=== PATIENT | female | born 1960 | race Caucasian/White ===

== ENCOUNTER 2023-09-29 14:34 | Emergency (ER) | payer MEDICARE, SELFPAY ==
[2023-09-29 14:38] VITALS: BP 136/77; PULSE 64; RESP 14; TEMP 36.7; O2SAT 97; BMI 27.2
--- NOTE | 2023-09-29 15:02 | CT_ITS ---
The [address] [address] Patient Name: TAMAR GERARD MRN: [id number] date: 1960 Sex: F Assigned Patient Location: ER Current Patient Location: Accession/Order Number: [id number] Exam Date: 09/29/2023 14:20 Report Date: 09/29/2023 18:06 At the request of: STACEY MARC Procedure: CT abdomen pelvis w con EXAM: CT abdomen pelvis w con TECHNIQUE: Axial CT images were obtained of the abdomen and pelvis with intravenous contrast. Sagittal and coronal reformatted images were also obtained. Dose reduction techniques were achieved by using automated exposure control and/or adjustment of mA and/or kV according to patient size and/or use of iterative reconstruction technique. HISTORY: diffuse abdominal pain, concern for SBO COMPARISON: 12/13/2020 FINDINGS: Lower chest: Stable scarring and/or atelectasis posteriorly in the left lower lobe. Liver: The liver is homogeneous with normal contours and normal size. Gallbladder: Status post colostomy. Mild central biliary dilatation is likely within normal limits, following cholecystectomy. Pancreas: The pancreas is homogeneous without evidence for mass lesion or inflammation. Spleen: Spleen is not visualized suggesting splenectomy. Adrenal glands: The adrenal glands are unremarkable Kidneys and bladder: The kidneys are unremarkable with no evidence for mass lesion, hydronephrosis or inflammation. The ureters demonstrate normal caliber. The urinary bladder is unremarkable. GI Tract: Stomach is unremarkable. Visualized small bowel is unremarkable without evidence for obstruction or active inflammation. Moderate retained stool throughout much of the colon. Reproductive: The uterus has been removed. Lymph nodes: No retroperitoneal or abdominal lymphadenopathy. Vascular: The aorta is not dilated. Peritoneum: No free intraperitoneal air or fluid. No acute inflammation. Abdominal wall: Implanted device in the subcutaneous fat of the left anterior abdominal wall. Spinal stimulator is noted. Degenerative changes of the lumbar spine. CT/CT abdomen pelvis w con IMPRESSION: Moderate retained stool throughout much of the colon suggesting constipation. No evidence for bowel obstruction or other acute process. Electronically authenticated by: JAMAAL ARMSTRONG Date: 09/29/2023 18:06
[2023-09-29] MEDS: 0.9 % SODIUM CHLORIDE 1,000 ML 200 ML IV (15:14)
[2023-09-29 15:17] LABS: Hematocrit 44.2 % (36.0-48.0); Hemoglobin 14.2 g/dL (12.0-16.0); Mean Corpuscular HGB Conc 32.1 g/dL (29.9-35.2); Mean Corpuscular Hemoglobin 35.1 pg (26.7-34.0); Mean Corpuscular Volume 109.4 fL (81.0-99.0); Mean Platelet Volume 9.4 fL (9.5-13.5); Platelet Count 360 10^3/uL (150-450); Red Blood Count 4.04 10^6/uL (4.20-5.40); Red Cell Distribution Width 15.1 % (11.0-15.0); White Blood Count 13.8 10^3/uL (4.0-11.0)
[2023-09-29 15:32] LABS: Anion Gap 8.4; BUN Creatinine Ratio 19.5; Carbon Dioxide 31.1 mmol/L (21.0-32.0); Chloride 106 mmol/L (98-107); Estimated GFR (African America >60 (>=60); Estimated GFR (Non-African Ame >60 (>=60); Glucose 91 mg/dL (74-106); Potassium 3.5 mmol/L (3.5-5.1); Sodium 142 mmol/L (136-145)
[2023-09-29 16:08] LABS: Hypochromasia 2+; Macrocytosis 2+; Poikilocytosis 1+; Stomatocytes 1+
[2023-09-29 16:13] LABS: Eosinophils Absolute Manual 0.13 10^3/uL (0.00-0.70); Monocytes Absolute Manual 1.38 10^3/uL (0.30-0.80); Segmented Neut Absolute Manual 8.28 10^3/uL (1.4-6.5)
--- NOTE | 2023-09-29 16:20 | ED.ABDPAIN1 ---
HPI - Abdominal Pain General Chief Complaint: Abdominal Pain Stated Complaint: BOWEL OBSTRUCTION Time Seen by Provider: 09/29/23 14:56 Source: patient Mode of arrival: Wheelchair History of Present Illness HPI narrative: 63-year-old female presents to the emergency department for abdominal pain. She is complaining of diffuse abdominal pain which is been increasing for three days and she is worried about a small bowel obstruction. She's had them previously. No injury or fever. She's been nauseous and wasn't able to eat breakfast today. The pain is moderate and continuous Related Data Home Medications Medication Instructions Recorded Confirmed albuterol sulfate 90 mcg/actuation inhalation 09/29/23 aerosol inhaler duloxetine 30 mg capsule,delayed mg PO 09/29/23 release hydromorphone (PF) 10 ml 09/29/23 mcg/mL-bupivacaine 0.1 %-0.9 %NaCL epidural resv linaclotide 290 mcg capsule mcg 09/29/23 (Linzess) omeprazole 20 mg capsule,delayed mg 09/29/23 release oxycodone-acetaminophen 5 mg-325 tab 09/29/23 mg tablet sulfamethoxazole 400 tab 09/29/23 mg-trimethoprim 80 mg tablet Allergies Allergy/AdvReac Type Severity Reaction Status Date / Time adhesive tape Allergy Severe Verified 09/29/23 14:44 fentanyl Allergy Severe Verified 09/29/23 14:44 prednisone Allergy Severe Verified 09/29/23 14:44 tetracycline Allergy Severe Verified 09/29/23 14:44 Review of Systems ROS Narrative A ten point review of systems is negative except as noted above. Exam Narrative Exam Narrative: Nurses note and vital signs reviewed and patient is not hypoxic. General: The patient appears well and in no apparent distress. Patient is resting comfortably on cart. Skin: Warm, dry, no pallor noted. There is no rash noted. Head: Normocephalic, atraumatic Eye: Normal conjunctiva, no drainage Ears, Nose, Mouth, and Throat: oral mucosa is moist. Nares patent. Cardiovascular: Regular Rate and Rhythm Respiratory: Patient is in no distress, no accessory muscle use, lungs are clear to auscultation, no wheezing, rales or rhonchi Back: non-tender GI: bowel sounds are hyperactive. She has mild diffuse tenderness without appreciable distention. Numerous old healed surgical scars present. Musculoskeletal: The patient has no evidence of calf tenderness, no pitting edema, symmetrical pulses noted bilaterally Neurological: A&O, normal speech Psychiatric: Cooperative Constitutional Vital Signs, click to edit/add: Last Vital Signs Temp 98.0 F 09/29/23 14:38 Pulse 64 09/29/23 14:38 Resp 14 09/29/23 14:38 BP 136/77 09/29/23 14:38 Pulse Ox 97 09/29/23 14:38 O2 Del Method Room Air 09/29/23 14:38 Course Vital Signs Vital signs: Vital Signs Temperature 98.0 F 09/29/23 14:38 Pulse Rate 64 09/29/23 14:38 Respiratory Rate 14 09/29/23 14:38 Blood Pressure 136/77 09/29/23 14:38 Pulse Oximetry 97 09/29/23 14:38 Oxygen Delivery Method Room Air 09/29/23 14:38 Temperature 98.0 F 09/29/23 14:38 Pulse Rate 64 09/29/23 14:38 Respiratory Rate 14 09/29/23 14:38 Blood Pressure 136/77 09/29/23 14:38 Pulse Oximetry 97 09/29/23 14:38 Oxygen Delivery Method Room Air 09/29/23 14:38 MDM - Abdominal Pain MDM Narrative Medical decision making narrative: CAT scan shows constipation, no bowel obstruction. She was recommended MiraLAX. Treatment diagnosis and follow-up were discussed with the patient. Differential Diagnosis Differential diagnosis: Likely abdominal pain, constipation, diverticulitis, gastroenteritis and small bowel obstruction Lab Data Attestation: I reviewed the patient's lab results. Labs: Lab Results 09/29/23 Range/Units 15:12 WBC 13.8 H (4.0-11.0) 10^3/uL RBC 4.04 L (4.20-5.40) 10^6/uL Hgb 14.2 (12.0-16.0) g/dL Hct 44.2 (36.0-48.0) % MCV 109.4 H (81.0-99.0) fL MCH 35.1 H (26.7-34.0) pg MCHC 32.1 (29.9-35.2) g/dL RDW 15.1 H (11.0-15.0) % Plt Count 360 (150-450) 10^3/uL MPV 9.4 L (9.5-13.5) fL Seg Neuts % (Manual) 60.0 Lymphocytes % (Manual) 29.0 (20.5-60.0) % Monocytes % (Manual) 10.0 (1.7-12.0) % Eosinophils % (Manual) 1.0 (0.9-7.0) % Basophils % (Manual) 0.0 L (0.2-2.0) % Neutrophils # (Manual) 8.28 H (1.4-6.5) 10^3/uL Lymphocytes # (Manual) 4.00 H (1.20-3.80) 10^3/uL Monocytes # (Manual) 1.38 H (0.30-0.80) 10^3/uL Eosinophils # (Manual) 0.13 (0.00-0.70) 10^3/uL Basophils # (Manual) 0.00 (0.00-0.10) 10^3/uL Hypochromasia 2+ Poikilocytosis 1+ Macrocytosis 2+ Stomatocytes 1+ Sodium 142 (136-145) mmol/L Potassium 3.5 (3.5-5.1) mmol/L Chloride 106 (98-107) mmol/L Carbon Dioxide 31.1 (21.0-32.0) mmol/L Anion Gap 8.4 BUN 15.0 (7.0-18.0) mg/dL Creatinine 0.77 (0.55-1.02) mg/dL Est GFR ( Amer) >60 (>=60) Est GFR (Non-Af Amer) >60 (>=60) BUN/Creatinine Ratio 19.5 Glucose 91 (74-106) mg/dL Calcium 9.0 (8.5-10.1) mg/dL Imaging Data CT scan - abdomen: Radiologist's impression: ITS Impressions Abdomen/Pelvis CT 09/29/23 15:02 IMPRESSION: Moderate retained stool throughout much of the colon suggesting constipation. No evidence for bowel obstruction or other acute process. Electronically authenticated by: JAMAAL ARMSTRONG Date: 09/29/2023 18:06 Discharge Plan Discharge Chief Complaint: Abdominal Pain Clinical Impression: Constipation Patient Disposition: Home, Self-Care Time of Disposition Decision: 18:18 Condition: Good Mode of Transportation: Private Vehicle Prescriptions / Home Meds: No Action hydromorphone-bupiv (PF)-NaCl 10 mcg/mL -0.1 % prefilled pump reservoir sulfamethoxazole-trimethoprim 400-80 mg tablet oxycodone-acetaminophen 5-325 mg tablet omeprazole 20 mg capsule,delayed release(DR/EC) albuterol sulfate 90 mcg/actuation HFA aerosol inhaler INHALATION duloxetine 30 mg capsule,delayed release(DR/EC) PO Linzess 290 mcg capsule Instructions: Constipation (ED) Stand Alone Forms: Portal Instructions Referrals: DERECK SILVESTRE [Primary Care Provider] - 1 week
== END 2023-09-29 18:32 | disposition home or self-care (01) ==
PROVIDERS: Emergency Provider Emergency Medicine; PCP Family Medicine
DX: K59.00 Constipation, unspecified (principal); Z79.899 Other long term (current) drug therapy
CPT/HCPCS: 36415; 74177; 80048; 85007; 85027; 99285; Q9967

== ENCOUNTER 2024-05-09 11:22 | Outpatient (RCR) | payer MEDICARE, SELFPAY | END 2024-05-10 15:45 | disposition home or self-care (01) | LOC: OT 11:22 | PROVIDERS: PCP Family Medicine; Visit Provider Nurse Practitioner Adult Health | DX: I89.0 Lymphedema, not elsewhere classified (principal); L89.613 Pressure ulcer of right heel, stage 3; L95.9 Vasculitis limited to the skin, unspecified; G90.50 Complex regional pain syndrome I, unspecified; R52 Pain, unspecified; I73.9 Peripheral vascular disease, unspecified; I87.2 Venous insufficiency (chronic) (peripheral) | CPT/HCPCS: 97167 ==